=== PATIENT | male | born 1985 ===

== ENCOUNTER → 2024-01-13 | Outpatient (CLI) | payer BC ==
[2024-01-13 14:19] LABS: Basophils # (auto) 0.1 10 ^3/uL (0-0.2); Basophils % (auto) 0.9 % (0.0-2.0); Eosinophils # (auto) 0.2 10 ^3/uL (0-0.8); Eosinophils % (auto) 2.2 % (0.0-7.0); Hematocrit 48.6 % (41.0-53.0); Lymphocytes # (auto) 2.3 10 ^3/uL (0.4-5.4); Lymphocytes % (auto) 29.7 % (10.0-50.0); Mean Corpuscular Hemoglobin 28.3 pg (28.0-32.0); Mean Corpuscular Volume 85.8 fL (80.0-100.0); Monocytes # (auto) 0.8 10 ^3/uL (0-1.3); Monocytes % (auto) 10.2 % (0.0-12.0); Neutrophils # (auto) 4.3 10 ^3/uL (1.6-8.6); Nucleated Red Blood Cells % 0.2 %; Red Blood Cells 5.67 10^6/uL (4.5-5.90); Red Cell Distribution Width 13.6 % (11.8-14.3); White Blood Cell 7.6 10^3/uL (4.4-10.8)
[2024-01-13 14:56] LABS: Alanine Aminotransferase 71 U/L (7-40); Albumin 4.5 g/dL (3.2-4.8); Alkaline Phosphatase 69 U/L (46-116); Anion Gap 7 (5-15); Aspartate Aminotransferase 39 U/L (13-40); BUN/Creatinine Ratio 8.6 (10.0-20.0); Blood Urea Nitrogen 7 mg/dL (9-23); Calcium 9.6 mg/dL (8.5-10.1); Carbon Dioxide 29 mmol/L (20-30); Chloride 104 mmol/L (98-107); Glucose 86 mg/dL (74-106); LDL Cholesterol 138 mg/dL (< 100); Potassium 4.1 mmol/L (3.5-5.1); Sodium 140 mmol/L (136-145); Triglycerides 144 mg/dL (< 150)
[2024-01-13 14:57] LABS: Bilirubin, Total 0.7 mg/dL (0.2-1.0); Cholesterol 196 mg/dL (< 200); HDL Cholesterol 45 mg/dL (40-59); Total Protein 7.1 g/dL (5.7-8.2)
[2024-01-13 14:58] LABS: T3 Total 1.52 ng/mL (0.60-1.81)
[2024-01-13 15:00] LABS: Free T4 (Free Thyroxine) 1.15 ng/dL (0.89-1.76)
== END | disposition home or self-care (01) ==
LOC: LAB 14:06
PROVIDERS: ATTEND Nurse Practitioner Gerontology
DX: Z00.01 Encounter for general adult medical examination with abnormal findings (principal); Z29.9 Encounter for prophylactic measures, unspecified; Z13.1 Encounter for screening for diabetes mellitus
CPT/HCPCS: 36415; 80053; 80061; 84439; 84443; 84480; 85025

== ENCOUNTER 2025-07-12 15:58 | Emergency (ER) | payer BC ==
[~2025-07-12] VITALS: Ht 172.7 cm; Wt 111.1 kg
--- NOTE | 2025-07-12 16:48 | DVH ---
INDICATION: Pain COMPARISON: None TECHNIQUE: 2 views of the lumbar spine were obtained. FINDINGS: Anterolisthesis of L5 on S1 measures 12 mm and retrolisthesis of L4 on L5 measures 7 mm. The lumbar v ertebral alignment is otherwise normal. Moderate to severe L4-L5 and severe L5-S1 disc height loss with adjacent endplate sclerosis and anter ior osteophytosis. The intervertebral disc spaces are otherwise well-maintained. No significant facet arthropathy is noted. No acute fracture, vertebral compression deformity or aggressive osseous lesions. The paravertebral soft tissues are grossly unremarkable. IMPRESSION: 1. Spondylosis and spondylolisthesis at the L4-L5 and L5-S1 levels without evidence of acute osseous abnormality.
[2025-07-12] MEDS: KETOROLAC TROMETH 60MG/2ML VIAL IM ONE (16:50)
[2025-07-12] MEDS: HYDROcodone-ACET 10/325MG TAB PO ONE (16:50)
[2025-07-12 17:00] VITALS: BP 120/65; PULSE 88; RESP 17; TEMP 97.9; O2SAT 97
--- NOTE | 2025-07-12 17:08 | ED.PDOC ---
Back pain HPI HPI Comments This is a morbidly obese 40 year old male presenting to the ED with chief complaint of back pain. Patient reports that when chasing after his 's chicken a week ago, he started to experiencing lower back pain, worsening yesterday. Patient relays that he is finding it difficult to get up without pain. Patient denies any numbness, weakness, tingling, fall, or injury. Vital signs were stable on arrival. Chief Complaint: Back Pain Time Seen by MD: 17:06 Reviewed Notes: Nurses Notes, Medications, Allergies Allergies: Coded Allergies: Ampicillin (Verified Allergy, Intermediate, RASH, 07/12/25) Home Meds Active Scripts Hydrocodone-Acetaminophen (Hydrocodone Bitartrate/AC 10-325 mg) 1 Tab Tab, 1 TAB PO Q8HP PRN, #12 TAB Prov:HERO MCCAIN PAC 07/12/25 Ibuprofen Micronized (Ibuprofen) 800 Mg Tab, 800 MG PO Q8HP PRN, #20 TAB Prov:HERO MCCAIN PAC 07/12/25 Information Source: Patient Mode of Arrival: Ambulatory Timing: Weeks Duration: Since onset Location of Back pain: (B) Lower back Severity: Severe Prehospital treatment: None Quality: Aching Onset: Spontaneous Circumstance: Other History of: None Associated signs and symptoms: None Past Medical History PAST MEDICAL HISTORY: Denies Surgical History: Denies all surgeries Family History Family History: Reviewed,noncontributory to illness Social History Smoker: Non-Smoker Alcohol: Denies ETOH Use Drugs: Denies Drug Use Lives In: Home Constitutional: denies: chills, diaphoresis, fatigue, fever, malaise, sweats, weakness, others EENTM: denies: blurred vision, double vision, ear bleeding, ear discharge, ear drainage, ear pain, ear ringing, eye pain, eye redness, hearing loss, mouth pain, mouth swelling, nasal discharge, nose bleeding, nose congestion, nose pain, photophobia, tearing, throat pain, throat swelling, voice changes, others Respiratory: denies: cough, hemoptysis, orthopnea, SOB at rest, shortness of breath, SOB with excertion, stridor, wheezing, others Cardiovascular: denies: chest pain, dizzy spells, diaphoresis, Dyspnea on exertion, edema, irregular heart beat, left arm pain, lightheadedness, palpitations, PND, syncope, others Gastrointestinal: denies: abdomen distended, abdominal pain, blood streaked bowels, constipated, diarrhea, dysphagia, difficulty swallowing, hematemesis, melena, nausea, poor appetite, poor fluid intake, rectal bleeding, rectal pain, vomiting, others Genitourinary: denies: burning, dysuria, flank pain, frequency, hematuria, incontinence, penile discharge, penile sore, pain, testicle pain, testicle swelling, urgency, others Neurological: denies: dizziness, fainting, headache, left sided numbness, left sided weakness, numbness, paresthesia, pre-existing deficit, right sided numbness, right sided weakness, seizure, speech problems, tingling, tremors, w eakness, others Musculoskeletal: reports: back pain; denies: gout, joint pain, joint swelling, muscle pain, muscle stiffness, neck pain, others Integumetry: denies: bruises, change in color, change in hair/nails, dryness, laceration, lesions, lumps, rash, wounds, others Allergic/Immunocompromised: denies: Difficulty Healing, Frequent Infections, Hives, Itching, others Hematologic/Lymphatic: denies: anemia, blood clots, easy bleeding, easy bruising, swollen glands, others Endocrine: denies: excessive hunger, excessive sweating, excessive thirst, excessive urination, flushing, intolerance to cold, intolerance to heat, unexplained weight gain, unexplained weight loss, others Psychiatric: denies: anxiety, bipolar disorder, depression, hopeless, panic disorder, schizophrenia, sleepless, suicidal, others All Other Systems: Reviewed and Negative Physical Exam General Appearance: Moderate Distress (Due to low back pain concerns), Normal HEENT: Normal ENT Inspection, Pharynx Normal, TMs Normal Neck: Full Range of Motion, Non-Tender, Normal, Normal Inspection Respiratory: Chest Non-Tender, Lungs Clear, No Accessory Muscle Use, No Respiratory Distress, Normal Breath Sounds Cardiovascular: No Edema, No JVD, No Murmur, No Gallop, Normal Peripheral Pulses, Regular Rate/Rhythm Breast Exam: Deferred Gastrointestinal: No Organomegaly, Non Tender, No Pulsatile Mass, Normal Bowel Sounds, Soft Genitalia: Deferred Pelvic: Deferred Rectal: Deferred Extremities: No calf tenderness, Normal capillary refill, Normal inspection, Normal range of motion, Non-tender, No pedal edema Musculoskeletal : Location: Bilateral Extremity Location: Back (Diffuse bilateral lumbar tenderness to palpation throughout bilaterally. Tenderness to palpation throughout the lower lumbar/sacral region. No step-offs appreciated. No pulsatile masses. Patient denies any saddle paresthesia. No myopathy.) Apperance: Normal Neurologic: Alert Cerebellar Function: NOT DONE Reflexes: NOT DONE Skin: Dry, Normal Color, Warm Lymphatic: No Adenopathy Was a procedure done? Was a procedure done?: No Back Pain Differential Dx Differential Diagnosis: Musculoskeletal Pain, Other (Degenerative disc disease of the lumbar spine. Spondylosis, spondylolisthesis) X-Ray, Labs, Meds, VS Vital Signs Date Time Temp Pulse Resp B/P (MAP) Pulse Ox O2 Delivery O2 Flow Rate FiO2 07/12/25 17:00 97.9 70 16 120/65 (83) 97 97.9 07/12/25 17:00 88 17 97 Room Air 07/12/25 15:59 97.6 66 16 132/84 97 97.6 Current Medications Medications (Trade) Dose Ordered Sig/Leora Route Start Time Stop Time Status Last Admin Ketorolac Tromethamine (Toradol Injection) 30 mg ONCE ONCE IM 07/12/25 16:30 07/12/25 16:31 DC 07/12/25 16:50 Acetaminophen/ Hydrocodone Bitart ([place] 10/325MG Tab) 1 tab ONCE ONCE PO 07/12/25 16:30 07/12/25 16:31 DC 07/12/25 16:50 [place] [address] Ph: [phone] DIAGNOSTIC IMAGING Diagnostic Imaging Report : [id number] Signed PATIENT: JUAN GOOD ACCT: [id number] UNIT: [id number] : 1985 LOC: ER ROOM / BED: / AGE / SEX: 40 / M ADM STATUS: REG ER SERVICE [id number] ORDERING PHYSICIAN: HERO MCCAIN PAC PROCEDURE(s): LUMB2 - LUMBAR SPINE 3 VIEW REASON: Pain ORDER NUMBER(s): [id number], ACCESSION NUMBER(s): [id number] INDICATION: Pain COMPARISON: None TECHNIQUE: 2 views of the lumbar spine were obtained. FINDINGS: Anterolisthesis of L5 on S1 measures 12 mm and retrolisthesis of L4 on L5 measures 7 mm. The lumbar vertebral alignment is otherwise normal. Moderate to severe L4-L5 and severe L5-S1 disc height loss with adjacent endplat e sclerosis and anterior osteophytosis. The intervertebral disc spaces are otherwise well-maintained. No significant facet arthropathy is noted. No acute fracture, vertebral compression deformity or aggressive osseous lesions. The paravertebral soft tissues are grossly unremarkable. IMPRESSION: 1. Spondylosis and spondylolisthesis at the L4-L5 and L5-S1 levels without evidence of acute osseous abnormality. ATED BY: EDMOND SARGENT MD DICTATED DATE/TIME: 07/12/251645 SIGNED BY: EDMOND SARGENT MD SIGNED DATE/TIME: 07/12/251645 CC: X-Ray, Labs, Meds, VS Comment All studies performed the ED were evaluated by me personally. Imaging studies of the lumbar spine revealed a spondylosis and spondylolisthesis at L4/L5 and L5/S1. No acute fractures or concerns. Patient has been advised to follow up with a primary care provider for ortho referral. Time of 1ST Reevaluation: 17:23 Reevaluation 1ST: Improved Consultation: PCP, Other (Spinal specialists) Patient Education/Counseling: Diagnosis, Treatment Family Education/Counseling: Diagnosis, Treatment, No Family Present SEPSIS Sepsis Screen Date sepsis recognized/suspect: Jul 12, 2025 Time Sepsis recognized/suspect: 1601 Recent Procedure: No On Antibiotic Therapy: No Respiratory Rate >20: No Heart Rate >90: No Temp<36 C (96.8 F) or >38.3 C: No SBP <90 or MAP <65 mmHG: No New Acute Mental Status Change: No Is the patient on CPAP, BIPAP,: No Physician Orders Lumbar Spine 3 View (07/12/25 16:19) Vital Signs Date Time Temp Pulse Resp B/P (MAP) Pulse Ox O2 Delivery O2 Flow Rate FiO2 07/12/25 17:00 97.9 70 16 120/65 (83) 97 97.9 07/12/25 17:00 88 17 97 Room Air 07/12/25 15:59 97.6 66 16 132/84 97 97.6 Medications Medications Dose Ordered Sig/Leora Route Start Time Stop Time Status Last Admin Dose Admin Acetaminophen/ Hydrocodone Bitart 1 tab ONCE ONCE PO 07/12/25 16:30 07/12/25 16:31 DC 07/12/25 16:50 Ketorolac Tromethamine 30 mg ONCE ONCE IM 07/12/25 16:30 07/12/25 16:31 DC 07/12/25 16:50 Departure 1 Departure Time of Disposition: 17:24 Impression: Primary Impression: Spondylosis Additional Impressions: Spondylolisthesis at L4-L5 level Spondylolisthesis at L5-S1 level Disposition: HOME / SELF CARE / HOMELESS Condition: Stable Additional Instructions: Patient has been advised to utilize pain medication as needed additionally, patient should follow up with his primary care provider for orthopedic referral and evaluation to address his newly diagnosed spondylolisthesis. e-Prescriptions Hydrocodone-Acetaminophen (Hydrocodone Bitartrate/AC 10-325 mg) 1 Tab Tab 1 TAB PO Q8HP PRN, #12 TAB Prov: HERO MCCAIN PAC 07/12/25 Ibuprofen Micronized (Ibuprofen) 800 Mg Tab 800 MG PO Q8HP PRN, #20 TAB Prov: HERO MCCAIN PAC 07/12/25 Discharged With: Self, Friend Critical Care Note Critical Care Time?: No Stability Stability form required: No Heart Score Heart Score: Heart Score Response (Comments) Value History N/A 0 EKG N/A 0 Age N/A 0 Risk Factors N/A 0 Troponin N/A 0 Total 0 I personally scribed for HERO MCCAIN PAC ([email or web address]) on 07/12/25 at 17:08. Electronically submitted by Andrew Haynes ([email or web address]). HERO MCCAIN PAC Jul 12, 2025 17:08
[2025-07-12] MEDS ORDERED: IBUP-1455 PO (17:26)
[2025-07-12] MEDS ORDERED: HYDR-4798 PO (17:26)
== END 2025-07-12 18:05 | disposition home or self-care (01) ==
LOC: ER 15:58
DX: M47.816 Spondylosis without myelopathy or radiculopathy, lumbar region (principal); M47.817 Spondylosis without myelopathy or radiculopathy, lumbosacral region; M43.16 Spondylolisthesis, lumbar region; M43.17 Spondylolisthesis, lumbosacral region; Z88.0 Allergy status to penicillin
CPT/HCPCS: 72100; 96372; 99283; J1885